=== PATIENT | female | born 1940 | race Two or more races ===

== ENCOUNTER 2024-08-19 12:20 | Emergency (ER) | payer OTHER ==
[~2024-08-19] VITALS: Ht 157.5 cm; Wt 49.0 kg
[2024-08-19] MEDS ORDERED: LEVOTHYROXINE25 MC1 PO (12:43)
[2024-08-19] MEDS ORDERED: FAMOTIDINE20 MG PO (12:43)
[2024-08-19] MEDS ORDERED: OMEPRAZOLE20 MG PO (12:43)
[2024-08-19] MEDS ORDERED: TOBRAMYCIN-DEXAM5 ML OPHT (12:43)
[2024-08-19] MEDS ORDERED: ATORVASTATIN CA20 MG PO (12:44)
[2024-08-19 12:48] VITALS: BP 133/64; O2SAT 98
[2024-08-19] MEDS ORDERED: TRAMADOL HCL 50 MG TABLET PO ONE (13:00)
[2024-08-19] MEDS ORDERED: TRIAMCINOLONE ACETONIDE 40 MG/ML VIAL IM ONE (13:00)
[2024-08-19] MEDS ORDERED: TRIAMCINOLONE ACETONIDE 40 MG/ML VIAL ONE (13:12)
[2024-08-19] MEDS ORDERED: MINERAL OIL 30 ML BLIST.PACK ONE (14:44)
[2024-08-19] MEDS ORDERED: LACTULOSE 20 G/30 ML BLIST.PACK ONE (14:45)
[2024-08-19] MEDS ORDERED: MINERAL OIL 30 ML BLIST.PACK PO ONE (14:45)
[2024-08-19] MEDS ORDERED: LACTULOSE 20 G/30 ML BLIST.PACK PO ONE (14:45)
[2024-08-19] MEDS ORDERED: MAGNESIUM HYDROXIDE 30 ML BLIST.PACK PO ONE (14:45)
[2024-08-19] MEDS ORDERED: MAGNESIUM HYDROXIDE 400 MG/5 ML ML PO ONE (14:45)
== END 2024-08-19 14:45 | disposition home or self-care (01) ==
LOC: ER 12:23
DX: S79.812A Other specified injuries of left hip, initial encounter (principal); W19.XXXA Unspecified fall, initial encounter; Y93.89 Activity, other specified; Y92.098 Other place in other non-institutional residence as the place of occurrence of the external cause; Y99.8 Other external cause status; E03.8 Other specified hypothyroidism; K59.00 Constipation, unspecified; M54.9 Dorsalgia, unspecified; Z88.6 Allergy status to analgesic agent
CPT/HCPCS: 72100; 73503; 73552; 74019; 96372; 99283; J3301

== ENCOUNTER 2025-05-20 08:41 | Inpatient (IN) | payer OTHER ==
[~2025-05-20] VITALS: Ht 162.6 cm; Wt 68.0 kg
[~2025-05-20 08:41] MED LIST: ATORVASTATIN CA20 MG PO; FAMOTIDINE20 MG PO; LEVOTHYROXINE25 MC1 PO; OMEPRAZOLE20 MG PO; TOBRAMYCIN-DEXAM5 ML OPHT
--- NOTE | 2025-05-20 09:02 | NUR ---
PACIENTE ALERTA Y ORIENTADA X3 REFIERE QUE LLEVA 3 DODD SIN EVACUAR Y CON DOLOR ABDOMINAL. SE MONITOREAN S/V Y SE UBICA PTE.
[2025-05-20] MEDS ORDERED: ONDANSETRON HCL 2 MG/ML VIAL ONE (09:59)
[2025-05-20] MEDS ORDERED: FAMOTIDINE/PF 20 MG in 0.9 % SODIUM CHLORIDE 8 ML IV PUSH ONE (10:00)
[2025-05-20] MEDS ORDERED: DIATRIZOATE MEGLUMINE, SODIUM 30 ML BOTTLE PO ONE (10:00)
[2025-05-20] MEDS ORDERED: DIATRIZOATE MEGLUMINE, SODIUM 30 ML BOTTLE ONE (10:00)
[2025-05-20] MEDS ORDERED: ONDANSETRON HCL 4 MG in 0.9 % SODIUM CHLORIDE 50 ML IV ONE (10:00)
[2025-05-20] MEDS ORDERED: 0.9 % SODIUM CHLORIDE 1,000 ML IV SCH (10:00)
--- NOTE | 2025-05-20 10:15 | NUR ---
SE ORIENTA PTE SOBRE TX MEDICO Y LA MISMA REIFERE ENTENDER Y ACEPTAR. SE CANALIZA Y SE COLECTAN MUESTRAS DE LAB, SE ADMINISTRA MED DANNY ORDEN MEDICA Y PTE NO PRESENTA REACCION. SE HACE ENTREGA DE ENVASE PARA UA Y SE CONTRASTE GASTROVIEW PARA CT PO. SE REALIZA EKG Y SE PRESENTA A
[2025-05-20 10:28] LABS: BASO % 0.5 % (0.1-1.2); EOS # 0.06 (0.04-0.54); EOS % 1.0 % (0.7-7.0); LYMPH # 0.76 (1.18-3.74); LYMPH % 13.2 % (19.3-53.1); MEAN PLATELET VOLUME 8.90 fl (9.4-12.4); MONO # 0.66 (0.24-0.82); MONO % 11.4 % (4.7-12.5); NEUT # 4.24 (1.56-6.13); NEUT % 73.6 % (34.0-71.1); RED CELL DISTRIBUTION WIDTH 17.2 % (11.6-14.4)
[2025-05-20 10:52] LABS: INR 1.23
[2025-05-20 10:57] LABS: ALT/SGPT 27.0 U/L (12-78); AST/SGOT 70.0 U/L (15-37); BILIRUBIN TOTAL 1.02 mg/dL (0.3-1.2); BUN CREA RATIO 25.0 (7.0-25.0); CREATININE SERUM 1.07 mg/dL (0.55-1.02); GFR 48.62; GLOBULINA 5.6 G/DL (2.4-3.5); GLUCOSE FASTING 109.0 mg/dL (65-100); OSMOLALITY SERUM 283.0 MOSM/KG (275-295)
[2025-05-20 11:18] LABS: URINE APPEARANCE Clear; URINE BILIRRUBIN Negative (NEGATIVE); URINE BLOOD Moderate; URINE COLOR Yellow; URINE GLUCOSE Negative (NEGATIVE); URINE KETONE Negative (NEGATIVE); URINE LEUKOCYTE Trace; URINE NITRATE Negative; URINE PROTEIN Trace (NEGATIVE); URINE UROBILINOGEN 0.2 E.U./dl
[2025-05-20 11:22] LABS: URINE BACTERIA 87.5 uL (0.0-1933); URINE CAST 2.63 uL (0.0-1.40); URINE EPITHELIAL CELLS 21.3 uL (0.0-38.8); URINE RBC 101.3 uL (0.0-20.8); URINE WBC 5.8 uL (0.0-23.2)
[2025-05-20] MEDS ORDERED: CIPROFLOXACIN IN 5 % DEXTROSE 200 ML IV SCH (16:54)
[2025-05-20] MEDS ORDERED: ONDANSETRON HCL 4 MG in 0.9 % SODIUM CHLORIDE 50 ML IV PRN (17:15)
[2025-05-20] MEDS ORDERED: ACETAMINOPHEN 325 MG TABLET PO PRN (17:15)
[2025-05-20] MEDS ORDERED: FAMOTIDINE/PF 20 MG in 0.9 % SODIUM CHLORIDE 8 ML IV PUSH SCH (17:17)
[2025-05-20] MEDS ORDERED: LACTULOSE 20 G/30 ML BLIST.PACK PO SCH (17:23)
[2025-05-20] MEDS ORDERED: ASPIRIN 81 MG TABLET.EC PO SCH (17:29)
[2025-05-20] MEDS ORDERED: CARVEDILOL 6.25 MG TABLET PO SCH (17:30)
[2025-05-20] MEDS ORDERED: ATORVASTATIN CALCIUM 10 MG TABLET PO SCH (17:30)
[2025-05-20] MEDS ORDERED: ACETAMINOPHEN 500 MG GEL..CAP PO PRN (18:00)
[2025-05-20 18:15] LABS: ABG PH 7.451 (7.35-7.45); ABG PO2 71.5 mmHg (80-100); BICARBONATE 24.8 mmol/l (23-25); o2 21 %
[2025-05-20] MEDS ORDERED: METRONIDAZOLE/SODIUM CHLORIDE 500 MG/100 ML PIGGYBACK IV ONE (18:53)
[2025-05-20] MEDS ORDERED: CIPROFLOXACIN IN 5 % DEXTROSE 400 MG/200 ML PIGGYBAG IV ONE (18:53)
[2025-05-20] MEDS ORDERED: LACTULOSE 20 G/30 ML BLIST.PACK ONE (18:54)
[2025-05-20] MEDS ORDERED: FAMOTIDINE/PF 20 MG/2 ML VIAL ONE (18:54)
[2025-05-20 22:42] VITALS: BP 188/87; O2SAT 98
[2025-05-21 02:49] VITALS: BP 169/89; O2SAT 97
[2025-05-21 05:43] LABS: BASO % 0.4 % (0.1-1.2); EOS # 0.13 (0.04-0.54); EOS % 1.9 % (0.7-7.0); LYMPH # 0.82 (1.18-3.74); LYMPH % 12.1 % (19.3-53.1); MEAN PLATELET VOLUME 9.70 fl (9.4-12.4); MONO # 0.73 (0.24-0.82); MONO % 10.8 % (4.7-12.5); NEUT # 5.02 (1.56-6.13); NEUT % 74.4 % (34.0-71.1); RED CELL DISTRIBUTION WIDTH 16.7 % (11.6-14.4)
[2025-05-21] MEDS ORDERED: LEVOTHYROXINE SODIUM 25 MCG TABLET PO SCH (06:00)
[2025-05-21 06:45] LABS: ALT/SGPT 24.0 U/L (12-78); AST/SGOT 61.0 U/L (15-37); BILIRUBIN TOTAL 0.92 mg/dL (0.3-1.2); BUN CREA RATIO 29.0 (7.0-25.0); CREATININE SERUM 0.91 mg/dL (0.55-1.02); GFR 58.61; GLOBULINA 5.2 G/DL (2.4-3.5); GLUCOSE FASTING 87.0 mg/dL (65-100); OSMOLALITY SERUM 284.0 MOSM/KG (275-295)
[2025-05-21 08:51] VITALS: BP 149/75
[2025-05-21] MEDS ORDERED: AMINO ACIDS/PROTEIN HYDROLYS 30 ML BLIST.PACK PO SCH (20:21)
[2025-05-21 20:32] VITALS: BP 128/81; O2SAT 98
[2025-05-21 21:54] LABS: GLU PERITONEAL FLUID 95.0 mg/dl; LDH PERITONEAL FLUID 75.0 U/L; TP PERITONEAL FLUID 3.2 g/dl
[2025-05-22 02:02] VITALS: BP 94/65; O2SAT 91
[2025-05-22 08:15] LABS: URINE APPEARANCE Clear; URINE BILIRRUBIN Negative (NEGATIVE); URINE BLOOD Small; URINE COLOR Yellow; URINE GLUCOSE Negative (NEGATIVE); URINE KETONE Negative (NEGATIVE); URINE LEUKOCYTE Trace; URINE NITRATE Negative; URINE PROTEIN Negative (NEGATIVE); URINE UROBILINOGEN 1.0 E.U./dl
[2025-05-22 08:19] LABS: URINE BACTERIA 457.0 uL (0.0-1933); URINE CAST 4.69 uL (0.0-1.40); URINE EPITHELIAL CELLS 14.6 uL (0.0-38.8); URINE RBC 106.6 uL (0.0-20.8); URINE WBC 6.1 uL (0.0-23.2)
[2025-05-22 09:23] VITALS: BP 90/60
[2025-05-22 18:06] VITALS: BP 100/59
[2025-05-23 00:52] VITALS: BP 101/41
[2025-05-23 09:31] VITALS: BP 91/54
[2025-05-23 18:36] VITALS: BP 108/61
[2025-05-24 01:05] VITALS: BP 99/62; O2SAT 95
[2025-05-24 06:10] LABS: BASO % 0.4 % (0.1-1.2); EOS # 0.22 (0.04-0.54); EOS % 2.9 % (0.7-7.0); LYMPH # 0.88 (1.18-3.74); LYMPH % 11.6 % (19.3-53.1); MEAN PLATELET VOLUME 9.90 fl (9.4-12.4); MONO # 0.99 (0.24-0.82); NEUT # 5.43 (1.56-6.13); NEUT % 71.7 % (34.0-71.1); RED CELL DISTRIBUTION WIDTH 17.5 % (11.6-14.4)
[2025-05-24 06:43] LABS: ALT/SGPT 12.0 U/L (12-78); AST/SGOT 35.0 U/L (15-37); BILIRUBIN TOTAL 0.54 mg/dL (0.3-1.2); BILIRUBIN,CONJUGATED 0.23 mg/dL (0.0-0.2)
[2025-05-24 07:54] LABS: MONO % 13.1 % (4.7-12.5)
[2025-05-24 08:00] VITALS: BP 116/71; O2SAT 96
[2025-05-24 20:09] VITALS: BP 105/66
[2025-05-25 02:22] VITALS: BP 102/55
[2025-05-25 07:10] LABS: hav igm Negative (Negative); hep b c Negative (Negative); hep b s ag Negative (Negative)
[2025-05-25 08:33] VITALS: BP 115/60
[2025-05-25] MEDS ORDERED: SPIRONOLACTONE 25 MG TABLET PO SCH (09:00)
[2025-05-25] MEDS ORDERED: PANTOPRAZOLE SODIUM 40 MG TABLET.DR PO SCH (17:00)
[2025-05-25] MEDS ORDERED: IRON FUM,PS/FOLIC/BCOMP,C NO.9 1 CAP CAPSULE PO SCH (17:00)
[2025-05-25] MEDS ORDERED: Cyanocobalamin/Mecobalamin 1 TAB.SL SL SCH (17:00)
[2025-05-25 19:06] VITALS: BP 103/67; O2SAT 97
[2025-05-26 02:24] VITALS: BP 96/60; O2SAT 94
[2025-05-26 06:16] LABS: BASO % 0.5 % (0.1-1.2); EOS # 0.34 (0.04-0.54); EOS % 3.3 % (0.7-7.0); LYMPH # 1.22 (1.18-3.74); LYMPH % 11.9 % (19.3-53.1); MEAN PLATELET VOLUME 10.30 fl (9.4-12.4); MONO # 1.39 (0.24-0.82); NEUT # 7.13 (1.56-6.13); NEUT % 69.8 % (34.0-71.1); RED CELL DISTRIBUTION WIDTH 17.0 % (11.6-14.4)
[2025-05-26 06:54] LABS: MONO % 13.6 % (4.7-12.5)
[2025-05-26] MEDS ORDERED: DULCOLAX5 MG PO (08:30)
[2025-05-26] MEDS ORDERED: Neurin-Sl Tablet Sl SL (08:30)
[2025-05-26] MEDS ORDERED: ST. JOSEPH ASPI81 M2 PO (08:30)
[2025-05-26] MEDS ORDERED: INTEGRA PLUS C1 EACH PO (08:30)
[2025-05-26] MEDS ORDERED: PROTEINEX-18 LI30 ML PO (08:30)
[2025-05-26] MEDS ORDERED: CARVEDILOL6.25 MG PO (08:30)
[2025-05-26] MEDS ORDERED: CORTISONE60 GM TOP (08:30)
[2025-05-26] MEDS ORDERED: FAMOTIDINE20 MG PO (08:30)
[2025-05-26] MEDS ORDERED: PANTOPRAZOLE SO40 MG PO (08:30)
[2025-05-26] MEDS ORDERED: Lipitor 10MG TABLET PO (08:30)
[2025-05-26] MEDS ORDERED: LEVOTHYROXINE25 MCG PO (08:30)
[2025-05-26] MEDS ORDERED: LACTULOSE10 GM PO (08:30)
[2025-05-26] MEDS ORDERED: LASIX20 MG PO (08:34)
[2025-05-26] MEDS ORDERED: ALDACTONE25 MG PO (08:34)
[2025-05-26 09:19] VITALS: BP 129/78; O2SAT 97
== END 2025-05-26 10:51 | disposition home or self-care (01) | DRG 948 ==
LOC: ER 08:42 → MEDI 17:03 → SEC-K 17:03 → MEDI 21:40
PROVIDERS: General Practice; Internal Medicine Geriatric Medicine; Internal Medicine Infectious Disease; Radiology Vascular & Interventional Radiology; ADMIT Internal Medicine; ATTEND Internal Medicine
PROC: 4A033R1 Measurement of Arterial Saturation, Peripheral, Percutaneous Approach (ICD-10-PCS; principal; 2025-05-20)
PROC: BW21ZZZ Computerized Tomography (CT Scan) of Abdomen and Pelvis (ICD-10-PCS; 2025-05-20)
PROC: B246ZZZ Ultrasonography of Right and Left Heart (ICD-10-PCS; 2025-05-21)
PROC: 4A12X4Z Monitoring of Cardiac Electrical Activity, External Approach (ICD-10-PCS; 2025-05-21)
PROC: 0W9G3ZZ Drainage of Peritoneal Cavity, Percutaneous Approach (ICD-10-PCS; 2025-05-21)
PROC: 30233N1 Transfusion of Nonautologous Red Blood Cells into Peripheral Vein, Percutaneous Approach (ICD-10-PCS; 2025-05-24)
DX: R18.8 Other ascites (principal); J90 Pleural effusion, not elsewhere classified; K59.00 Constipation, unspecified; R14.0 Abdominal distension (gaseous); K74.60 Unspecified cirrhosis of liver; R06.9 Unspecified abnormalities of breathing; K31.819 Angiodysplasia of stomach and duodenum without bleeding; I35.0 Nonrheumatic aortic (valve) stenosis; I73.9 Peripheral vascular disease, unspecified; Z86.718 Personal history of other venous thrombosis and embolism; Z86.73 Personal history of transient ischemic attack (TIA), and cerebral infarction without residual deficits; E03.9 Hypothyroidism, unspecified; N18.9 Chronic kidney disease, unspecified; D64.9 Anemia, unspecified; R53.81 Other malaise